=== PATIENT | male | born 1960 | race Caucasian/White ===

== ENCOUNTER 2020-04-28 13:14 | Emergency (ER) | payer OTHER ==
[~2020-04-28] VITALS: Ht 175.3 cm; Wt 82.6 kg
[2020-04-28 13:30] VITALS: BP 129/84
--- NOTE | 2020-04-28 13:30 | NUR ---
ED Nurse Note: Pt walked in to ED c/o left earache and sharp pain to left side of the head onset this morning. Denies nausea/ vomiting. Pt also c/o blurring of vision to left eye. AAOx4, verbally responsive. No SOB, on room air. ERMD at bedside.
--- NOTE | 2020-04-28 13:54 | Emergency Room Report ---
History of Present Illness General Chief Complaint: Pain Source: Patient Present Illness HPI Disclaimer: Please note that this report is being documented using DRAGON technology. This can lead to erroneous entry secondary to incorrect interpretation by the dictating instrument. HPI: 60-year-old male presents for evaluation of headache. Over the past 2 days he has had a severe headache over the left side of his head that radiates down to the left ear and down the neck. Pain is located over the occiput on the left side. No pain over the temples. Denies trauma. Denies history of aneurysm, mass, intracranial surgery. He reports intermittent blurring of his left eye. Currently his vision is fine. Denies pain in the eye, lacrimation, purulent drainage. He reported some ear pain as well but denies changes in hearing, drainage. Denies swelling or rash over the head. Denies hyperesthesia. Denies limitation range of motion the neck. No prior history of headaches. Made an appointment with neurology but not available to see them until June. PMH: Reviewed PSH: Reviewed Allergies: Reviewed Social Hx: Reviewed Allergies: Coded Allergies: No Known Allergies (Verified Allergy, Unknown, 01/14/10) COVID-19 Screening Contact w/high risk pt: No Experienced COVID-19 symptoms?: No COVID-19 Testing performed [employer]: Yes - 04/23/20 COVID-19 Screening: Negative COVID-19 COVID-19 Testing Source: clinic Nursing Documentation-PMH Hx Hypertension: Yes - HTN borderline Review of Systems All Other Systems: negative except mentioned in HPI Physical Exam Vital Signs Date Time Temp Pulse Resp B/P (MAP) Pulse Ox O2 Delivery O2 Flow Rate FiO2 04/28/20 13:23 98.1 65 19 129/84 (99) 97 Room Air General: Awake and alert, no acute distress HEENT: NC/AT. EOMI. PERRLA. There is no tenderness over the temples, no swelling, no erythema. Visual araiza are full. Acuity: 20/70 OS, 20/50 OD, 20/40 OU. Facial expressions are symmetrical. Tympanic membranes are pearly phelps nonbulging no edema or erythema or effusion bilaterally. Cardiovascular: RRR. S1 and S2 normal. No murmur appreciated Resp: Normal work of breathing. No cough, wheezing or crackles appreciated Abdomen: Abdomen is soft, nondistended. Nontender Skin: Intact. No abrasions, laceration or rash over the exposed skin. No vesicles or skin breakdown over the scalp. MSK: Normal tone and bulk. Moving all extremities. No obvious deformity. Neuro: Awake and alert. Mentating appropriately. Medical Decision Making Diagnostic Impression: Primary Impression: Headache ER Course This a 60-year-old male presenting for intermittent headaches and blurred vision in the left eye. Differential includes is not limited to intracranial mass, cranial bleed, atypical migraine, trigeminal neuralgia, cluster headache, generalized headache, among others. Patient is neurologically intact. CT scan unremarkable. Patient be referred to neurology. Suspect either atypical migraine or cluster headache. The patient has a history of migraines in the past but has not had them for several years. He is otherwise well-appearing stable for outpatient follow-up. Instructed to return with new or worsening symptoms. He understands and agrees with this treatment plan. Copy of his CT was included in discharge paperwork. Last Vital Signs Date Time Temp Pulse Resp B/P (MAP) Pulse Ox O2 Delivery O2 Flow Rate FiO2 04/28/20 13:23 98.1 65 19 129/84 (99) 97 Room Air Disposition: HOME, SELF-CARE Condition: Stable Jermaine Jones MD Apr 28, 2020 13:54
--- NOTE | 2020-04-28 15:09 | Diagnostic Imaging Report ---
Indications: Headache Technique: Spiral acquisitions obtained through the brain. Angled axial and coronal 5 x 5 mm slices were reconstructed. Total dose length product 1045 mGycm. CTDI vol(s) 53 mGy. Dose reduction achieved using automated exposure control Comparison: None. Findings: No acute intracranial hemorrhage or edema, mass effect, nor midline shift. Normal phelps-white differentiation. Normal size ventricles and extra-axial CSF spaces. Intact calvarium. Mastoids, sinuses, orbits are unremarkable. Impression: Negative The CT scanner at [facility] is accredited by the [employer] and the scans are performed using protocols designed to limit radiation exposure to as low as reasonably achievable to attain images of sufficient resolution adequate for diagnostic evaluation.
[2020-04-28 15:19] VITALS: BP 121/72
--- NOTE | 2020-04-28 15:19 | NUR ---
ED Nurse Note: Pt cleared by ERMD for discharge. DC instructions was given and explained to pt and verbalized understanding of teachings. All medical deviecs such as ID band removed. Pt is AAO x4, ambulatory and left with all personal belongings.
== END 2020-04-28 15:19 | disposition home or self-care (01) ==
LOC: EMR 14:00
DX: R51.9 Headache, unspecified (principal); I10 Essential (primary) hypertension
CPT/HCPCS: 70450; 99284